=== PATIENT | male | born 1995 | race Caucasian/White ===

== ENCOUNTER 2020-04-29 21:22 | Emergency (ER) | payer MEDICAID ==
[~2020-04-29] VITALS: Ht 180.3 cm; Wt 90.7 kg
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
--- NOTE | 2020-04-29 21:25 | NUR ---
Dr. Grace examining patient.
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
[2020-04-29 22:02] VITALS: BP 155/87
[2020-04-29 23:15] VITALS: BP 155/87
--- NOTE | 2020-04-29 23:15 | NUR ---
Patient discharged with v/s stable. Written and verbal after care instructions given and explained. Patient verbalized understanding. Ambulatory with steady gait. All questions addressed prior to discharge. Advised to follow up with PMD.
== END 2020-04-29 23:15 | disposition home or self-care (01) ==
LOC: MED 21:22
DX: S00.03XA Contusion of scalp, initial encounter (principal); V49.3XXA Car occupant (driver) (passenger) injured in unspecified nontraffic accident, initial encounter; Y93.89 Activity, other specified; Y92.89 Other specified places as the place of occurrence of the external cause; Y99.8 Other external cause status
CPT/HCPCS: 70450; 99284